=== PATIENT | female | born 1945 | race African-American/Black ===

== ENCOUNTER 2024-12-23 15:45 | Inpatient (IN) | payer MEDICARE, MEDICAID ==
[~2024-12-23] VITALS: Ht 149.9 cm; Wt 56.7 kg
[~2024-12-23 15:45] MED LIST: ALEN10TA25 PO; ASPI-1406 PO; ASPI-864 PO; ATOR-388 PO; CLOP-31 PO; EMPA25TA PO; ENAL10TA71 PO; ENOX40DI8 SUBCUT; FERR325T6 PO; GLIM2TAB30 PO; HYDR25TA PO; IBUP-1455 PO; IMIT25 PO; LIP40 PO; METF-416 PO; MULT1TAB7 PO; MYL30 PO; PEPJ2 IV; POTA8TAB70 PO; PREG75CA PO; PROT40 PO; QUET25TA PO; TOPUD PO; [UNRECOGNIZED DRUG - OTHER] IV
[2024-12-23] MEDS ORDERED: DEXTROSE 50% WATER 50ML SYRINGE IV PRN (17:15)
[2024-12-23] MEDS ORDERED: HYDRALAZINE 20MG/ML VIAL IV PRN (17:15)
[2024-12-23] MEDS ORDERED: NA PHOS,M-B/NA PHOS,DI-BA ENEMA 118ML PR PRN (17:15)
[2024-12-23] MEDS ORDERED: GUAIFENESIN-DM 200MG-20MG/10ML UDC PO PRN (17:15)
[2024-12-23] MEDS ORDERED: IPRATROPIUM/ALBUTEROL 0.5-3(2.5)MG/3ML NEB HHN PRN (17:15)
[2024-12-23] MEDS ORDERED: MAGNESIUM/ALUMINUM HYDROXIDE/SIMETHICONE 30ML UDC PO PRN (17:15)
[2024-12-23] MEDS ORDERED: ONDANSETRON HCL 4MG/2ML INJ IV PRN (17:15)
[2024-12-23] MEDS ORDERED: ACETAMINOPHEN 325MG TABLET PO PRN (17:15)
[2024-12-23] MEDS: ACETAMINOPHEN 325MG TABLET PO PRN (17:29)
[2024-12-23] MEDS ORDERED: HYDRALAZINE 20 MG in SODIUM CHLORIDE 0.9% 49 ML IV PRN (17:30)
[2024-12-23] MEDS: SODIUM CHLORIDE 0.45% 1,000 ML IV SCH (17:30)
[2024-12-23] MEDS: BLOOD SUGAR DIAGNOSTIC STRIP TEST SCH (17:47)
[2024-12-23] MEDS: QUETIAPINE FUMARATE 25MG TABLET PO SCH (18:25)
[2024-12-23 19:59] VITALS: BP 156/82; PULSE 92; RESP 18; TEMP 35.9176
[2024-12-23 20:00] VITALS: BP 142/76; PULSE 88; RESP 18; TEMP 36.7; O2SAT 95
[2024-12-23] MEDS ORDERED: QUETIAPINE FUMARATE 25MG TABLET PO SCH (21:00)
[2024-12-23] MEDS: ATORVASTATIN CALCIUM 40MG TABLET PO SCH (22:18)
[2024-12-24] VITALS: BP 136/71; PULSE 82; RESP 17; TEMP 36.7; O2SAT 97
[2024-12-24 06:31] LABS: BASOPHILS % 0.4 % (0.0-2.0); EOSINOPHILS % 1.5 % (0.0-5.0); HEMATOCRIT. 33.0 % (36.0-48.0); HEMOGLOBIN. 11.0 g/dL (12.0-16.0); LYMPHOCYTES % 23.0 % (20.0-50.0); MEAN PLATELET VOLUME 9.4 fl (7.4-10.4); MONOCYTES % 6.8 % (2.0-8.0); NEUTROPHILS % 68.3 % (40.0-76.0); PLATELET 251 x1000/uL (130-400); RED BLOOD CELL COUNT 3.40 mill/uL (4.2-5.4); RED CELL DISTRIBUTION WIDTH 13.6 % (11.6-14.6)
[2024-12-24 07:01] LABS: CREATININE 0.8 mg/dL (0.6-1.0); UREA NITROGEN BLOOD 17 mg/dL (9-23)
[2024-12-24 07:03] LABS: ASPARTATE AMINOTRANSFERASE 41 IU/L (<34); BILIRUBIN TOTAL 0.6 mg/dL (0.1-1.0); PROTEIN TOTAL 6.3 g/dL (6.0-8.3)
[2024-12-24 07:46] LABS: HEPATITIS C AB NON REACTIVE (Neg) (Negative)
[2024-12-24 08:00] VITALS: BP 123/68; PULSE 89; RESP 17; TEMP 36.6; O2SAT 100
[2024-12-24] MEDS: FAMOTIDINE 20MG/2ML VIAL IV SCH (08:21)
[2024-12-24] MEDS ORDERED: SITA25TA3 PO (08:48)
[2024-12-24] MEDS ORDERED: METF-414 PO (08:48)
[2024-12-24] MEDS: ENOXAPARIN 40MG/0.4ML SYR SUBCUT SCH (09:56)
[2024-12-24] MEDS: LISINOPRIL 20MG TABLET PO SCH (09:57)
[2024-12-24] MEDS: CLOPIDOGREL 75MG TABLET PO SCH (09:57)
[2024-12-24] MEDS: ASPIRIN 81MG EC TABLET PO SCH (09:57)
[2024-12-24] MEDS ORDERED: POTASSIUM CHLORIDE 20MEQ TABLET SR PO SCH (16:00)
[2024-12-24] MEDS: POTASSIUM CHLORIDE 20MEQ TABLET SR PO SCH (19:40)
[2024-12-24 20:00] VITALS: BP 103/64; PULSE 85; RESP 18; TEMP 36.5; O2SAT 98
[2024-12-25 07:32] LABS: BASOPHILS % 0.5 % (0.0-2.0); EOSINOPHILS % 2.1 % (0.0-5.0); HEMATOCRIT. 31.3 % (36.0-48.0); HEMOGLOBIN. 10.4 g/dL (12.0-16.0); LYMPHOCYTES % 26.8 % (20.0-50.0); MEAN PLATELET VOLUME 9.8 fl (7.4-10.4); MONOCYTES % 7.2 % (2.0-8.0); NEUTROPHILS % 63.4 % (40.0-76.0); PLATELET 242 x1000/uL (130-400); RED BLOOD CELL COUNT 3.20 mill/uL (4.2-5.4); RED CELL DISTRIBUTION WIDTH 13.6 % (11.6-14.6)
[2024-12-25 07:53] LABS: CREATININE 0.7 mg/dL (0.6-1.0)
[2024-12-25 07:54] LABS: UREA NITROGEN BLOOD 13 mg/dL (9-23)
[2024-12-25 07:55] LABS: ASPARTATE AMINOTRANSFERASE 29 IU/L (<34)
[2024-12-25 07:56] LABS: BILIRUBIN TOTAL 0.4 mg/dL (0.1-1.0); FOLIC ACID (FOLATE) SERUM > 20.00 ng/mL (>5.38); PROTEIN TOTAL 6.1 g/dL (6.0-8.3)
[2024-12-25 07:58] LABS: VITAMIN B12 SERUM 550 pg/mL (211-911)
[2024-12-25 08:00] VITALS: BP 123/55; PULSE 82; RESP 17; TEMP 36.9; O2SAT 96
[2024-12-25] MEDS: FERROUS SULFATE 325MG TABLET PO SCH (08:40)
[2024-12-25] MEDS: FAMOTIDINE 20MG TABLET PO SCH (08:40)
[2024-12-25 20:00] VITALS: BP 145/71; PULSE 85; RESP 18; TEMP 36.8
[2024-12-26 08:00] VITALS: BP 145/58; PULSE 75; RESP 17; TEMP 37; O2SAT 97
[2024-12-26] MEDS: ASCORBIC ACID 500 MG TABLET PO SCH (08:34)
[2024-12-26 11:56] LABS: CREATININE 0.7 mg/dL (0.6-1.0); UREA NITROGEN BLOOD 7 mg/dL (9-23)
[2024-12-26 16:00] LABS: CLARITY URINE CLEAR (CLEAR); COLOR URINE YELLOW (YELLOW); GLUCOSE URINE NEGATIVE (NEGATIVE); KETONES URINE NEGATIVE (NEGATIVE); LEUKOCYTE ESTERASE URINE NEGATIVE (NEGATIVE); NITRITE URINE NEGATIVE (NEGATIVE); OCCULT BLOOD URINE NEGATIVE (NEGATIVE); PH URINE 6.5 (4.5-8.0); PROTEIN URINE NEGATIVE (NEGATIVE); SPECIFIC GRAVITY URINE 1.004 (1.005-1.030); UROBILINOGEN URINE 0.2 E.U./dL (0.2-1.0)
[2024-12-26] MEDS: ERGOCALCIFEROL 50000UNITS CAPSULE PO SCH (17:37)
[2024-12-26 20:00] VITALS: BP 150/72; PULSE 78; RESP 18; TEMP 36.4; O2SAT 98
[2024-12-27 08:00] VITALS: BP 139/70; PULSE 72; RESP 18; TEMP 36.6; O2SAT 98
[2024-12-27 20:00] VITALS: BP 145/84; PULSE 88; RESP 20; TEMP 36.7; O2SAT 98
[2024-12-28 07:44] VITALS: BP 130/64; PULSE 82; RESP 18; TEMP 36.7; O2SAT 100
[2024-12-28 20:00] VITALS: BP 115/61; PULSE 96; RESP 18; TEMP 36.4; O2SAT 98
[2024-12-29 08:00] VITALS: BP 139/69; PULSE 92; RESP 16; TEMP 36.9; O2SAT 98
[2024-12-29] MEDS: DICLOFENAC SODIUM 75MG DR TABLET PO NR (11:03)
[2024-12-29] MEDS: DICLOFENAC SODIUM 1% GEL 50GM TOP SCH (12:09)
[2024-12-29 20:00] VITALS: BP 141/65; PULSE 81; RESP 18; TEMP 36.6; O2SAT 97
[2024-12-30 08:00] VITALS: BP 149/80; PULSE 76; RESP 18; TEMP 36.4; O2SAT 97
[2024-12-30] MEDS: QUETIAPINE FUMARATE 25MG TABLET PO SCH (17:54)
[2024-12-30 20:00] VITALS: BP 146/81; PULSE 94; RESP 18; TEMP 36.5; O2SAT 97
[2024-12-31 08:00] VITALS: BP 126/61; PULSE 73; RESP 16; TEMP 36.5; O2SAT 98
[2024-12-31] MEDS: INSULIN LISPRO 100 UNITS/ML SUBCUT SCH (13:00)
[2024-12-31 20:00] VITALS: BP 157/89; PULSE 85; RESP 18; TEMP 36.5; O2SAT 98
[2025-01-01 08:00] VITALS: BP 106/60; PULSE 80; RESP 16; TEMP 36.6; O2SAT 96
[2025-01-01 20:00] VITALS: BP 140/72; PULSE 92; RESP 18; TEMP 36.5; O2SAT 97
[2025-01-02 08:00] VITALS: BP 145/81; PULSE 90; RESP 17; TEMP 36.2; O2SAT 97
[2025-01-02 12:53] LABS: BASOPHILS % 0.4 % (0.0-2.0); EOSINOPHILS % 1.5 % (0.0-5.0); HEMATOCRIT. 33.8 % (36.0-48.0); HEMOGLOBIN. 11.1 g/dL (12.0-16.0); LYMPHOCYTES % 19.2 % (20.0-50.0); MEAN PLATELET VOLUME 9.4 fl (7.4-10.4); MONOCYTES % 5.9 % (2.0-8.0); NEUTROPHILS % 73.0 % (40.0-76.0); PLATELET 338 x1000/uL (130-400); RED BLOOD CELL COUNT 3.45 mill/uL (4.2-5.4); RED CELL DISTRIBUTION WIDTH 13.1 % (11.6-14.6)
[2025-01-02 13:11] LABS: CREATININE 0.7 mg/dL (0.6-1.0); UREA NITROGEN BLOOD 15 mg/dL (9-23)
[2025-01-02] MEDS: QUETIAPINE FUMARATE 50MG TABLET PO SCH (17:51)
[2025-01-02 20:00] VITALS: BP 134/67; PULSE 74; RESP 18; TEMP 36.5; O2SAT 96
[2025-01-03 08:00] VITALS: BP 156/71; PULSE 90; RESP 18; TEMP 36.2; O2SAT 100
[2025-01-03] MEDS: HYDRALAZINE HCL 10MG TABLET PO PRN (20:22)
[2025-01-03 20:26] VITALS: BP 160/70; PULSE 85; RESP 18; TEMP 36.4; O2SAT 99
[2025-01-04 08:00] VITALS: BP 113/62; PULSE 72; RESP 16; TEMP 36.6; O2SAT 97
[2025-01-04 20:00] VITALS: BP 148/71; PULSE 76; RESP 18; TEMP 36.2; O2SAT 97
[2025-01-05 08:00] VITALS: BP 106/51; PULSE 60; RESP 17; TEMP 35.8; O2SAT 98
[2025-01-05 20:00] VITALS: BP 155/73; PULSE 76; RESP 18; TEMP 36.6; O2SAT 98
[2025-01-06 08:00] VITALS: BP 112/70; PULSE 85; RESP 16; TEMP 36.5; O2SAT 95
[2025-01-06] MEDS: MULTIVITAMINS,THER W-MINERALS TABLET PO SCH (17:56)
[2025-01-06 20:00] VITALS: BP 134/65; PULSE 77; RESP 20; TEMP 36.5; O2SAT 98
[2025-01-07 07:05] LABS: BASOPHILS % 0.3 % (0.0-2.0); EOSINOPHILS % 2.3 % (0.0-5.0); HEMATOCRIT. 31.8 % (36.0-48.0); HEMOGLOBIN. 10.6 g/dL (12.0-16.0); LYMPHOCYTES % 22.2 % (20.0-50.0); MEAN PLATELET VOLUME 9.5 fl (7.4-10.4); MONOCYTES % 6.8 % (2.0-8.0); NEUTROPHILS % 68.4 % (40.0-76.0); PLATELET 282 x1000/uL (130-400); RED BLOOD CELL COUNT 3.26 mill/uL (4.2-5.4); RED CELL DISTRIBUTION WIDTH 13.3 % (11.6-14.6)
[2025-01-07 07:17] LABS: CREATININE 0.6 mg/dL (0.6-1.0); UREA NITROGEN BLOOD 13 mg/dL (9-23)
[2025-01-07 08:00] VITALS: BP 114/65; PULSE 72; RESP 18; TEMP 36.4; O2SAT 98
[2025-01-07] MEDS: ENOXAPARIN 30MG/0.3ML SYR SUBCUT SCH (09:37)
[2025-01-07 20:00] VITALS: BP 140/87; PULSE 82; RESP 20; TEMP 36.4; O2SAT 97
[2025-01-08 08:00] VITALS: BP 111/57; PULSE 64; RESP 18; TEMP 36.4; O2SAT 98
[2025-01-08 20:00] VITALS: BP 161/78; PULSE 78; RESP 18; TEMP 37.3; O2SAT 96
[2025-01-09 08:00] VITALS: BP 106/58; PULSE 74; RESP 18; TEMP 36.6; O2SAT 97
[2025-01-09] MEDS: QUETIAPINE FUMARATE 25MG TABLET PO PRN (17:57)
[2025-01-09 20:00] VITALS: BP 135/74; PULSE 86; RESP 19; TEMP 36.2; O2SAT 98
[2025-01-10 08:00] VITALS: BP 135/71; PULSE 77; RESP 16; TEMP 36.4; O2SAT 99
[2025-01-10 19:14] LABS: CLARITY URINE CLEAR (CLEAR); COLOR URINE YELLOW (YELLOW); GLUCOSE URINE NEGATIVE (NEGATIVE); KETONES URINE NEGATIVE (NEGATIVE); LEUKOCYTE ESTERASE URINE TRACE (NEGATIVE); NITRITE URINE NEGATIVE (NEGATIVE); OCCULT BLOOD URINE NEGATIVE (NEGATIVE); PH URINE 6.5 (4.5-8.0); PROTEIN URINE NEGATIVE (NEGATIVE); SPECIFIC GRAVITY URINE 1.009 (1.005-1.030); UROBILINOGEN URINE 0.2 E.U./dL (0.2-1.0)
[2025-01-10 19:25] LABS: BASOPHILS % 0.6 % (0.0-2.0); EOSINOPHILS % 1.0 % (0.0-5.0); HEMATOCRIT. 35.3 % (36.0-48.0); HEMOGLOBIN. 11.5 g/dL (12.0-16.0); LYMPHOCYTES % 17.7 % (20.0-50.0); MEAN PLATELET VOLUME 9.9 fl (7.4-10.4); MONOCYTES % 6.3 % (2.0-8.0); NEUTROPHILS % 74.4 % (40.0-76.0); PLATELET 267 x1000/uL (130-400); RED BLOOD CELL COUNT 3.55 mill/uL (4.2-5.4); RED CELL DISTRIBUTION WIDTH 13.3 % (11.6-14.6)
[2025-01-10 19:30] LABS: INR 1.0
[2025-01-10 19:37] LABS: RBC URINE NONE SEEN /hpf (0-2); WBC URINE 0-2 /hpf (0-2)
[2025-01-10 19:38] LABS: BACTERIA URINE NONE SEEN; RENAL EPITHELIAL CELLS URINE Rare /lpf; SQUAMOUS EPITHELIAL CELL URINE RARE /lpf (RARE/1+)
[2025-01-10 19:43] LABS: CREATININE 0.6 mg/dL (0.6-1.0); UREA NITROGEN BLOOD 13 mg/dL (9-23)
[2025-01-10 20:00] VITALS: BP 126/79; PULSE 95; RESP 18; TEMP 36.7; O2SAT 99
[2025-01-11 08:00] VITALS: BP 114/66; PULSE 81; RESP 17; TEMP 36.6; O2SAT 97
[2025-01-11 08:13] LABS: CREATININE 0.7 mg/dL (0.6-1.0); UREA NITROGEN BLOOD 16 mg/dL (9-23)
[2025-01-11 08:20] LABS: BASOPHILS % 0.3 % (0.0-2.0); EOSINOPHILS % 2.3 % (0.0-5.0); HEMATOCRIT. 32.6 % (36.0-48.0); HEMOGLOBIN. 10.7 g/dL (12.0-16.0); LYMPHOCYTES % 22.2 % (20.0-50.0); MEAN PLATELET VOLUME 9.6 fl (7.4-10.4); MONOCYTES % 7.7 % (2.0-8.0); NEUTROPHILS % 67.5 % (40.0-76.0); PLATELET 231 x1000/uL (130-400); RED BLOOD CELL COUNT 3.30 mill/uL (4.2-5.4); RED CELL DISTRIBUTION WIDTH 13.1 % (11.6-14.6)
[2025-01-11] MEDS ORDERED: LISI20TA31 PO (09:48)
[2025-01-11] MEDS ORDERED: ASPI-1406 PO (09:48)
[2025-01-11] MEDS ORDERED: DICL100G58 TP (09:48)
[2025-01-11] MEDS ORDERED: LIP40 PO (09:48)
[2025-01-11] MEDS ORDERED: ASCO500T20 PO (09:48)
[2025-01-11] MEDS ORDERED: FERR325T6 PO (09:48)
[2025-01-11] MEDS ORDERED: CLOP-31 PO (09:48)
[2025-01-11] MEDS ORDERED: ERGO1250 PO (09:48)
[2025-01-11] MEDS ORDERED: QUET50TA PO (09:48)
[2025-01-11] MEDS ORDERED: METF-414 PO (09:48)
[2025-01-11 11:09] VITALS: BP 114/66; PULSE 81; RESP 17; TEMP 97.9
== END 2025-01-11 11:55 | disposition home health service (06) | DRG 64 ==
PROVIDERS: ADMIT Physical Medicine & Rehabilitation Spinal Cord Injury Medicine; ATTEND Internal Medicine
DX: I63.9 Cerebral infarction, unspecified (principal); G82.50 Quadriplegia, unspecified; L89.153 Pressure ulcer of sacral region, stage 3; F01.53 Vascular dementia, unspecified severity, with mood disturbance; F01.54 Vascular dementia, unspecified severity, with anxiety; F33.1 Major depressive disorder, recurrent, moderate; D64.9 Anemia, unspecified; I10 Essential (primary) hypertension; M21.372 Foot drop, left foot; M48.00 Spinal stenosis, site unspecified; M41.9 Scoliosis, unspecified; K52.9 Noninfective gastroenteritis and colitis, unspecified; G89.4 Chronic pain syndrome; E87.6 Hypokalemia; E55.9 Vitamin D deficiency, unspecified; E78.00 Pure hypercholesterolemia, unspecified; F41.1 Generalized anxiety disorder; Z96.653 Presence of artificial knee joint, bilateral; N28.1 Cyst of kidney, acquired; R79.89 Other specified abnormal findings of blood chemistry; R53.81 Other malaise; R26.9 Unspecified abnormalities of gait and mobility; M06.9 Rheumatoid arthritis, unspecified; E11.65 Type 2 diabetes mellitus with hyperglycemia; R41.89 Other symptoms and signs involving cognitive functions and awareness; R53.1 Weakness; Z90.49 Acquired absence of other specified parts of digestive tract; Z91.81 History of falling; R47.1 Dysarthria and anarthria; R47.01 Aphasia
CPT/HCPCS: 36415; 80048; 80053; 81003; 82140; 82306; 82607; 82728; 82746; 82962; 83036; 83540; 83550; 84134; 84443; 85025; 86705; 87340; 92523; 92610; 97110; 97112; 97116; 97162; 97166; 97530; 97535; A4606; A6449; J1650; J1815